=== PATIENT | male | born 1980 | race Hispanic/Latino ===

== ENCOUNTER 2020-01-05 08:17 | Outpatient (CLI) | payer OTHER ==
--- NOTE | 2020-01-05 08:50 | RAD ---
XR Sinuses [place] View Only HISTORY: MRI clearance COMPARISON: None. FINDINGS: No radiopaque foreign bodies identified.
--- NOTE | 2020-01-05 10:57 | MRI ---
MRI RIGHT KNEE WITHOUT CONTRAST: HISTORY: M23.91, internal derangement of right knee. COMPARISON: None. FINDINGS: Medial Meniscus: Complex tear of the medial meniscus including a radial tear of the medial meniscal body extending fro m the free edge and intermediate portions of the red zone as well as a SLAP tear of the anterior body . There is horizontal cleavage to the posterior horn near the root. There is gutter extrusion of the medial meniscus 2-3 mm. Lateral Meniscus: Intact. The ACL and PCL, MCL and LCL are intact. Extensor Mechanism: The quadriceps tendon, patella, and patella tendon are intact. Cartilage: Patellofemoral Compartment: Low-grade chondral fraying of the lateral patellar facet. No full-thickness defect. Medial Compartment: Mild chondral fraying less than 25% of the weightbearing surface medial femoral condyle, medial tibia l plateau. No full-thickness defect. Lateral Compartment: Intact. Muscles: The muscle signal and bulk is normal. Soft Tissues: There is moderate joint effusion. Bones: Some trace edema of the medial tibial rim. IMPRESSION: 1. Complex tear of the medial meniscus including a near complete radial tear from the free edge thro ugh the intermediate and portion of the red zone near medial meniscal body with anterior propagation of a undersurface flap tear involving the anterior body as well as posterior cleavage tear of the pos terior horn extending near the root; 2 mm gutter extrusion medial meniscal body. 2. Intact cruciate ligaments and collateral ligaments. 3. Moderate joint effusion without free body appreciated. POS: HOME
== END 2020-01-05 08:18 | disposition home or self-care (01) ==
LOC: BICMRI 08:17
PROVIDERS: ATTEND Family Medicine
DX: M23.91 Unspecified internal derangement of right knee (principal); M25.461 Effusion, right knee; M23.203 Derangement of unspecified medial meniscus due to old tear or injury, right knee
CPT/HCPCS: 70210

== ENCOUNTER 2020-02-10 06:59 | Day surgery (SDC) | payer OTHER ==
[2020-02-08 10:09] VITALS: BMI 41.3
[2020-02-10] MEDS ORDERED: PROPOFOL 20 ML ONE (07:36)
[2020-02-10] MEDS ORDERED: Lidocaine 2% w/Epinephrine 1:200K 20 ML VIAL ONE (09:27)
[2020-02-10] MEDS ORDERED: PROPOFOL 200 MG/20 ML VIAL ONE (09:27)
[2020-02-10] MEDS ORDERED: Lidocaine 1% PF 5 ML VIAL ONE (09:27)
[2020-02-10] MEDS ORDERED: Bupivacaine HCl 0.5%/Epinephrine 1:200,000/PF 30 ml Vial ONE (09:27)
[2020-02-10] MEDS ORDERED: Ondansetron PF 4 MG/2 ML Vial ONE (09:27)
[2020-02-10] MEDS ORDERED: Dexamethasone 20 MG/5 ML VIAL ONE (09:27)
--- NOTE | 2020-02-10 13:53 | OP ---
DATE OF PROCEDURE: 02/10/2020 PREOPERATIVE DIAGNOSIS: Medial meniscus tear, right knee. POSTOPERATIVE DIAGNOSIS: Medial meniscus tear, right knee. PROCEDURE PERFORMED: Right partial medial meniscectomy. ANESTHESIA: General. ESTIMATED BLOOD LOSS: Minimal. SPECIMENS: None. DRAINS: None. COMPLICATIONS: None. DESCRIPTION OF PROCEDURE: Right leg was prepped and draped in the usual sterile fashion. No tourniquet was used. Scope was placed in the lateral portal. Probe was placed in the medial portal. 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 These were debrided. He had a complex tear involving most of the posterior horn of the medial meniscus. This was debrided using basket forceps and smoothed using a 4.0 full-radius resector. This area was irrigated and drained. Actually, there was no loose bodies. The ACL was intact. The lateral compartment was intact. Patellofemoral joint was free of disease and there were no loose bodies in the pouch. The knee was irrigated and drained once again. Sterile dressings applied. Job ID: [id number]
== END 2020-02-10 11:40 | disposition home or self-care (01) ==
LOC: SDC 06:59
PROVIDERS: ATTEND Orthopaedic Surgery
PROC: 0SBC4ZZ Excision of Right Knee Joint, Percutaneous Endoscopic Approach (ICD-10-PCS; principal; 2020-02-10)
DX: S83.231A Complex tear of medial meniscus, current injury, right knee, initial encounter (principal); M94.261 Chondromalacia, right knee; Z79.82 Long term (current) use of aspirin; Z88.8 Allergy status to other drugs, medicaments and biological substances; Z91.011 Allergy to milk products; X58.XXXA Exposure to other specified factors, initial encounter; Y99.0 Civilian activity done for income or pay
CPT/HCPCS: J0670; J0690; J1100; J2405; J2704

== ENCOUNTER 2024-05-28 11:19 | Emergency (ER) | payer OTHER, SELFPAY ==
[2024-05-28] MEDS ORDERED: Acetaminophen 500 MG TAB ONE (11:33)
[2024-05-28] MEDS ORDERED: Lidocaine 4% Patch ONE (11:34)
[2024-05-28] MEDS ORDERED: Ketorolac Tromethamine 30 MG (1 mL) VIAL ONE (12:04)
== END 2024-05-28 12:28 | disposition home or self-care (01) ==
LOC: ERS 11:19
DX: R29.898 Other symptoms and signs involving the musculoskeletal system (principal)
CPT/HCPCS: 96372; 99283; J1885